=== PATIENT | female | born 1970 | race Caucasian/White ===

== ENCOUNTER 2023-04-26 00:57 | Emergency (ER) | payer BC, OTHER, SELFPAY ==
[2023-04-26 01:10] VITALS: BP 105/59; PULSE 84; RESP 16; TEMP 36.9; O2SAT 98; BMI 20.4
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
== END 2023-04-26 02:58 | disposition home or self-care (01) ==
PROVIDERS: Emergency Provider Emergency Medicine Emergency Medical Services; PCP Nurse Practitioner Family
DX: R45.851 Suicidal ideations (principal); Z63.0 Problems in relationship with spouse or partner
CPT/HCPCS: 99284